=== PATIENT | male | born 1990 | race Caucasian/White ===

== ENCOUNTER 2019-05-06 18:23 | Inpatient (IN) | payer OTHER ==
[2019-05-06 19:54] VITALS: BMI 24.4
--- NOTE | 2019-05-06 21:03 | HP ---
CIWA Score Nausea/Vomitin Muscle Tremors: 1-None Visible, but [place] Anxiety: 2 Agitation: 2 Paroxysmal Sweats: 1-Minimal Palms Moist Orientation: 0-Oriented Tacttile Disturbances: 0-None Auditory Disturbances: 2-Mild Harshness/Frighten Visual Disturbances: 2-Mild Sensitivity Headache: 4-Moderately Severe CIWA-Ar Total Score: 16 - Admission Criteria OASAS Guidelines: Admission for Medically Managed Detox: Requires at least one of the followin. CIWA greater than 12 2. Seizures within the past 24 hours 3. Delirium tremens within the past 24 hours 4. Hallucinations within the past 24 hours 5. Acute intervention needed for co occurring medical disorder 6. Acute intervention needed for co occurring psychiatric disorder 7. Severe withdrawal that cannot be handled at a lower level of care (continued vomiting, continued diarrhea, abnormal vital signs) requiring intravenous medication and/or fluids 8. Admission ROS [facility] Allergies/Adverse Reactions: Allergies Allergy/AdvReac Type Severity Reaction Status Date / Time No Known Allergies Allergy Verified 05/06/19 19:49 History of Present Illness: Search Terms: robert hernandez, 1990 Search Date: 05/06/2019 08:56:15 PM The Drug Utilization Report below displays all of the controlled substance prescriptions, if any, that your patient has filled in the last twelve months. The information displayed on this report is compiled from pharmacy submissions to the Department, and accurately reflects the information as submitted by the pharmacies. This report was requested by: Shantell Patel | Reference #: [id number] There are no results for the search terms that you entered. pt here requesting detox from etoh use , reports first age of use 16 , current daily use " every day once in a while " 3-4 cans beer x 24 oz , reports symptoms if not drinking " I don't feel normal " , latest use yesterday , went to [facility] 2/ [place] , pt was referred to this facility . cocaine : 2 bags /day via inhalation x 5 years tobacco : 2-3 cigarettes PMHX : SAD PSHX : denies SHx : lives alone , no children Exam Limitations: Clinical Condition - Ebola screening Have you traveled outside of the country in the last 21 days: No (N) Have you had contact with anyone from an Ebola affected area: No Do you have a fever: No - Review of Systems Constitutional: No Symptoms Reported EENT: reports: Other (glasses - myopia , denies hearing loss, denies dysphagia ) Respiratory: reports: No Symptoms reported Cardiac: reports: No Symptoms Reported GI: reports: Constipated, Nausea : reports: No Symptoms Reported Musculoskeletal: reports: No Symptoms Reported Integumentary: reports: Dryness, Rash (raulito l ankles- chronic) Neuro: reports: See HPI, Headache Endocrine: reports: No Symptoms Reported Hematology: reports: Anemia Psychiatric: reports: Orientated x3, Agitated, Anxious, Depressed Patient History - Smoking Cessation Smoking history: Current every day smoker Have you smoked in the past 12 months: Yes Hx Chewing Tobacco Use: No Initiated information on smoking cessation: Yes 'Breaking Loose' booklet given: 05/06/19 - Substances abused Alcohol Substance route: Oral Frequency: Daily Amount used: liquor-1 pint, beer- 1 six pack Age of first use: 16 Date of last use: 05/05/19 Admission Physical Exam BHS - Vital Signs Vital Signs: Vital Signs - 24 hr 05/06/19 19:49 Temperature 97.0 F L Pulse Rate 88 Respiratory 18 Rate Blood Pressure 98/67 - Physical General Appearance: Yes: Mild Distress, Anxious HEENTM: Yes: EOMI, Hearing grossly Normal, Normocephalic, Normal Voice Respiratory: Yes: Chest Non-Tender, Lungs Clear, Normal Breath Sounds, No Respiratory Distress, No Accessory Muscle Use Neck: Yes: No masses,lesions,Nodules, Trachea in good position Cardiology: Yes: Regular Rhythm, Regular Rate, S1, S2 Abdominal: Yes: Non Tender, Soft Musculoskeletal: Yes: Gait Steady Extremities: Yes: Normal Range of Motion, Non-Tender Neurological: Yes: Alert, Motor Strength 5/5, Depressed Affect Integumentary: Yes: Warm - Diagnostic (1) Alcohol abuse Current Visit: Yes Status: Chronic (2) Cocaine abuse Current Visit: Yes Status: Chronic (3) Nicotine dependence Current Visit: Yes Status: Chronic Qualifiers: Nicotine product type: cigarettes Breathalyzer - Breathalyzer Breathalyzer: 0 Inpatient Rehab Admission - Rehab Decision to Admit Inpatient rehab admission?: No
[2019-05-06] MEDS ORDERED: BISMUTH SUBSALICYLATE 524 MG/30 ML UD PO PRN (21:09)
[2019-05-06] MEDS ORDERED: MAGNESIUM HYDROX 2400MG/30ML ORAL SUSPENSION 30 ML CUP PO PRN (21:09)
[2019-05-06] MEDS ORDERED: hydrOXYzine PAMOATE 25 MG CAPSULE (FP) PO PRN (21:09)
[2019-05-06] MEDS ORDERED: MAG HYDROX/AL HYDROX/SIMETH 30 ML UNIT-DOSE CUP PO PRN (21:09)
[2019-05-06] MEDS ORDERED: ACETAMINOPHEN 325 MG TABLET (FP) PO PRN (21:09)
[2019-05-06] MEDS ORDERED: MENTHOL/PHENOL 1 EACH UD MM PRN (21:09)
[2019-05-06] MEDS ORDERED: MAGNESIUM CITRATE 300 ML BOTTLE PO PRN (21:09)
[2019-05-06] MEDS ORDERED: IBUPROFEN 400 MG TABLET (FP) PO PRN (21:09)
[2019-05-06] MEDS ORDERED: diazePAM 5 MG TABLET PO PRN (21:11)
[2019-05-06] MEDS: diazePAM 5 MG TABLET PO SCH (22:38)
[2019-05-06] MEDS: MELATONIN 5 MG TABLETS PO PRN (22:38)
[2019-05-06] MEDS: THIAMINE HCL 100 MG TABLET (FP) PO SCH (22:38)
[2019-05-07] MEDS: diazePAM 5 MG TABLET PO SCH ×3 (06:59→22:34)
[2019-05-07] MEDS: PRENATAL VITAMINS W/ FOLIC ACID TABLET (FP) PO SCH (10:06)
[2019-05-07] MEDS: NICOTINE 14 MG/24 HOURS TOPICAL PATCH TD SCH (10:08)
[2019-05-07 10:19] LABS: HEMOGLOBIN 12.6 GM/dL (11.7-16.9); MCH 28.5 pg (25.7-33.7); MCHC 32.2 g/dl (32.0-35.9); MEAN CELL VOLUME 88.4 fl (80-96); MEAN PLT VOLUME 8.7 fl (7.5-11.1); PLATELET COUNT 239 K/MM3 (134-434); RBC 4.41 M/mm3 (4.00-5.60); WHITE BLOOD COUNT 6.3 K/mm3 (4.0-10.0)
[2019-05-07 10:28] LABS: ALBUMIN 3.3 g/dl (3.4-5.0); BILIRUBIN,TOTAL 0.3 mg/dL (0.2-1); BLOOD UREA NITROGEN 14.8 mg/dL (7-18); CALCIUM 9.1 mg/dL (8.5-10.1); CREATININE 1.1 mg/dL (0.55-1.3); POTASSIUM 4.3 mmol/L (3.5-5.1); TOT PROT 6.5 g/dl (6.4-8.2)
--- NOTE | 2019-05-07 13:41 | PN ---
[facility] CIWA - CIWA Score Nausea/Vomitin-Mild Nausea/No Vomiting Muscle Tremors: 3 Anxiety: 4-Mod. Anxious/Guarded Agitation: 2 Paroxysmal Sweats: 2 Orientation: 0-Oriented Tacttile Disturbances: 0-None Auditory Disturbances: 0-None Visual Disturbances: 0-None Headache: 0-None Present CIWA-Ar Total Score: 12 S Progress Note (SOAP) Subjective: 28 years old male admitted on 05/06/19 for alcohol withdrawal sx management treated with valium detox regimen feeling tired resting on bed trouble sleeping Objective: 05/07/19 13:40 Vital Signs Temperature 97.3 F L 05/07/19 13:19 Pulse Rate 88 05/07/19 13:19 Respiratory Rate 20 05/07/19 13:19 Blood Pressure 102/69 05/07/19 13:19 O2 Sat by Pulse Oximetry (%) Laboratory Last Values WBC 6.3 K/mm3 (4.0-10.0) 05/07/19 08:00 RBC 4.41 M/mm3 (4.00-5.60) 05/07/19 08:00 Hgb 12.6 GM/dL (11.7-16.9) 05/07/19 08:00 Hct 39.0 % (35.4-49) 05/07/19 08:00 MCV 88.4 fl (80-96) 05/07/19 08:00 MCH 28.5 pg (25.7-33.7) 05/07/19 08:00 MCHC 32.2 g/dl (32.0-35.9) 05/07/19 08:00 RDW 13.0 % (11.9-15.9) 05/07/19 08:00 Plt Count 239 K/MM3 (134-434) 05/07/19 08:00 MPV 8.7 fl (7.5-11.1) 05/07/19 08:00 Sodium 142 mmol/L (136-145) 05/07/19 08:00 Potassium 4.3 mmol/L (3.5-5.1) 05/07/19 08:00 Chloride 108 mmol/L (98-107) H 05/07/19 08:00 Carbon Dioxide 28 mmol/L (21-32) 05/07/19 08:00 Anion Gap 6 MMOL/L (8-16) L 05/07/19 08:00 BUN 14.8 mg/dL (7-18) 05/07/19 08:00 Creatinine 1.1 mg/dL (0.55-1.3) 05/07/19 08:00 Est GFR (CKD-EPI)AfAm 106.06 05/07/19 08:00 Est GFR (CKD-EPI)NonAf 91.51 05/07/19 08:00 Random Glucose 79 mg/dL (74-106) 05/07/19 08:00 Calcium 9.1 mg/dL (8.5-10.1) 05/07/19 08:00 Total Bilirubin 0.3 mg/dL (0.2-1) 05/07/19 08:00 AST 10 U/L (15-37) L 05/07/19 08:00 ALT 13 U/L (13-61) 05/07/19 08:00 Alkaline Phosphatase 66 U/L (45-117) 05/07/19 08:00 Total Protein 6.5 g/dl (6.4-8.2) 05/07/19 08:00 Albumin 3.3 g/dl (3.4-5.0) L 05/07/19 08:00 lab noted Assessment: 05/07/19 13:40 alcohol withdrawal sx Plan: continue valium detox regimen
--- NOTE | 2019-05-07 15:03 | CONSULT ---
[facility] Psychiatric Consult - Data Date of interview: 05/07/19 Admission source: [facility] Identifying data: First admission to [facility] for this 28 y/o male self-referred for detoxification (CHINEDU issues : alcohol, heroin, cocaine, nicotine). Interviewed at [address] [place] [address]. Patient is single, no children, homeless, unemployed and supported by SSI benefits. Substance Abuse History: Discussed with patient. Details in current [facility] report as follows : Smoking history: Current every day smoker. Have you smoked in the past 12 months: Yes. Hx Chewing Tobacco Use: No. Initiated information on smoking cessation: Yes. 'Breaking Loose' booklet given: 05/06/19. - Substances abused. Alcohol. Substance route: Oral. Frequency: Daily. Amount used: liquor-1 pint, beer- 1 six pack. Age of first use: 16. Date of last use: 05/05/19 Medical History: Patient endorses good general health. Psychiatric History: Patient reports a history of 5-6 psychiatric hospitalizations since his first psychiatric meltdown at age 18. He is known to [facility] and [facility] (discharged on 05/05/19) . Diagnosed with Schizophrenia. Patient has been prescribed risperdal 2 mg/hs. Mr Hunt denies history of suicide attempts. Physical/Sexual Abuse/Trauma History: Patient denies history of abuse. Additional Comment: No toxicology for review. Mental Status Exam - Mental Status Exam Alert and Oriented to: Time, Place, Person Cognitive Function: Good Patient Appearance: Well Groomed Mood: Withdrawn Affect: Flat Patient Behavior: Fatigued, Cooperative Speech Pattern: Clear, Delayed Voice Loudness: Normal Thought Process: Goal Oriented Thought Disorder: Bizarre Hallucinations: Denies Suicidal Ideation: Denies Homicidal Ideation: Denies Insight/Judgement: Poor Sleep: Well Appetite: Good Muscle strength/Tone: Normal Gait/Station: Normal Psychiatric Findings - Problem List ([place] 1, 2,3) (1) Schizophrenia Current Visit: Yes Status: Chronic (2) Alcohol use disorder Current Visit: Yes Status: Chronic (3) Cocaine use disorder Current Visit: Yes Status: Chronic (4) Opioid use disorder Current Visit: Yes Status: Chronic (5) Nicotine dependence Current Visit: Yes Status: Chronic Qualifiers: Nicotine product type: cigarettes (6) Substance induced mood disorder Current Visit: Yes Status: Chronic - Initial Treatment Plan Initial Treatment Plan: Psychoeducation. Sleep hygiene. Detoxification. AA/NA meetings. MAT services : revisited with patient. Risperdal 2 mg po hs. Side effects/benefits discussed in this session. Patient is made aware of potential for EPS (akathisia, dystonias, tardive dyskinesia, akinesia), neuroleptic syndrome, endocrine issues (galactorrhea, gynecomastia, sexual impotence) and cardiovascular adverse events. Mr Hunt is in agreement with this plan of care. Gave verbal consent to . Observation.
[2019-05-07] MEDS: risperiDONE 2 MG TABLET PO SCH (22:33)
[2019-05-07] MEDS: THIAMINE HCL 100 MG TABLET (FP) PO SCH (22:33)
[2019-05-07] MEDS: MELATONIN 5 MG TABLETS PO PRN (22:33)
[2019-05-08] MEDS: diazePAM 5 MG TABLET PO SCH ×2 (05:47→17:50)
--- NOTE | 2019-05-08 09:39 | PN ---
[facility] CIWA - CIWA Score Nausea/Vomitin-Mild Nausea/No Vomiting Muscle Tremors: 2 Anxiety: 2 Agitation: 2 Paroxysmal Sweats: No Perspiration Orientation: 0-Oriented Tacttile Disturbances: 0-None Auditory Disturbances: 0-None Visual Disturbances: 0-None Headache: 0-None Present CIWA-Ar Total Score: 7 S Progress Note (SOAP) Subjective: 28 years old male admitted on 05/06/19 for alcohol withdrawal sx management treated with valium detox regimen patient tolerated well feeling better today less tremor mild anxiety ate breakfast discuss aftercare with staff Objective: 05/08/19 09:38 Vital Signs Temperature 97.2 F L 05/08/19 09:14 Pulse Rate 61 05/08/19 09:14 Respiratory Rate 18 05/08/19 09:14 Blood Pressure 86/57 L 05/08/19 09:14 O2 Sat by Pulse Oximetry (%) Laboratory Last Values WBC 6.3 K/mm3 (4.0-10.0) 05/07/19 08:00 RBC 4.41 M/mm3 (4.00-5.60) 05/07/19 08:00 Hgb 12.6 GM/dL (11.7-16.9) 05/07/19 08:00 Hct 39.0 % (35.4-49) 05/07/19 08:00 MCV 88.4 fl (80-96) 05/07/19 08:00 MCH 28.5 pg (25.7-33.7) 05/07/19 08:00 MCHC 32.2 g/dl (32.0-35.9) 05/07/19 08:00 RDW 13.0 % (11.9-15.9) 05/07/19 08:00 Plt Count 239 K/MM3 (134-434) 05/07/19 08:00 MPV 8.7 fl (7.5-11.1) 05/07/19 08:00 Sodium 142 mmol/L (136-145) 05/07/19 08:00 Potassium 4.3 mmol/L (3.5-5.1) 05/07/19 08:00 Chloride 108 mmol/L (98-107) H 05/07/19 08:00 Carbon Dioxide 28 mmol/L (21-32) 05/07/19 08:00 Anion Gap 6 MMOL/L (8-16) L 05/07/19 08:00 BUN 14.8 mg/dL (7-18) 05/07/19 08:00 Creatinine 1.1 mg/dL (0.55-1.3) 05/07/19 08:00 Est GFR (CKD-EPI)AfAm 106.06 05/07/19 08:00 Est GFR (CKD-EPI)NonAf 91.51 05/07/19 08:00 Random Glucose 79 mg/dL (74-106) 05/07/19 08:00 Calcium 9.1 mg/dL (8.5-10.1) 05/07/19 08:00 Total Bilirubin 0.3 mg/dL (0.2-1) 05/07/19 08:00 AST 10 U/L (15-37) L 05/07/19 08:00 ALT 13 U/L (13-61) 05/07/19 08:00 Alkaline Phosphatase 66 U/L (45-117) 05/07/19 08:00 Total Protein 6.5 g/dl (6.4-8.2) 05/07/19 08:00 Albumin 3.3 g/dl (3.4-5.0) L 05/07/19 08:00 RPR Titer Nonreactive (NONREACTIVE) 05/07/19 08:00 lab noted Assessment: 05/08/19 09:39 alcohol withdrawal sx Plan: continue valium detox regimen
[2019-05-08] MEDS: NICOTINE 14 MG/24 HOURS TOPICAL PATCH TD SCH (10:03)
[2019-05-08] MEDS: PRENATAL VITAMINS W/ FOLIC ACID TABLET (FP) PO SCH (10:04)
[2019-05-08] MEDS: risperiDONE 2 MG TABLET PO SCH (21:53)
[2019-05-08] MEDS: THIAMINE HCL 100 MG TABLET (FP) PO SCH (21:53)
[2019-05-08] MEDS: MELATONIN 5 MG TABLETS PO PRN (21:54)
[2019-05-09] MEDS ORDERED: diazePAM 5 MG TABLET PO ONE (06:00)
[2019-05-09] MEDS: NICOTINE 14 MG/24 HOURS TOPICAL PATCH TD SCH (11:06)
[2019-05-09] MEDS: PRENATAL VITAMINS W/ FOLIC ACID TABLET (FP) PO SCH (11:07)
--- NOTE | 2019-05-09 11:58 | PN ---
[facility] CIWA - CIWA Score Nausea/Vomitin-No Nausea/No Vomiting Muscle Tremors: 1-None Visible, but [place] Anxiety: 1-Mildly Anxious Agitation: 0-Normal Activity Paroxysmal Sweats: No Perspiration Orientation: 0-Oriented Tacttile Disturbances: 0-None Auditory Disturbances: 0-None Visual Disturbances: 0-None Headache: 0-None Present CIWA-Ar Total Score: 2 S Progress Note (SOAP) Subjective: 28 years old male admitted on 05/06/19 for alcohol withdrawal sx management treated with valium detox regimen completed detox regimen found +PPD "Like before" patient had history of positive ppd and "they did not do anything " patient does not remember +PPD treatment patient does not remember latest chest x ray patient does not remember anything regarding +PPD however every happy to stay for chest x ray available tomorrow Objective: 05/09/19 12:01 Vital Signs Temperature 96.3 F L 05/09/19 09:13 Pulse Rate 67 05/09/19 09:13 Respiratory Rate 18 05/09/19 09:13 Blood Pressure 113/65 05/09/19 09:13 O2 Sat by Pulse Oximetry (%) Laboratory Last Values WBC 6.3 K/mm3 (4.0-10.0) 05/07/19 08:00 RBC 4.41 M/mm3 (4.00-5.60) 05/07/19 08:00 Hgb 12.6 GM/dL (11.7-16.9) 05/07/19 08:00 Hct 39.0 % (35.4-49) 05/07/19 08:00 MCV 88.4 fl (80-96) 05/07/19 08:00 MCH 28.5 pg (25.7-33.7) 05/07/19 08:00 MCHC 32.2 g/dl (32.0-35.9) 05/07/19 08:00 RDW 13.0 % (11.9-15.9) 05/07/19 08:00 Plt Count 239 K/MM3 (134-434) 05/07/19 08:00 MPV 8.7 fl (7.5-11.1) 05/07/19 08:00 Sodium 142 mmol/L (136-145) 05/07/19 08:00 Potassium 4.3 mmol/L (3.5-5.1) 05/07/19 08:00 Chloride 108 mmol/L (98-107) H 05/07/19 08:00 Carbon Dioxide 28 mmol/L (21-32) 05/07/19 08:00 Anion Gap 6 MMOL/L (8-16) L 05/07/19 08:00 BUN 14.8 mg/dL (7-18) 05/07/19 08:00 Creatinine 1.1 mg/dL (0.55-1.3) 05/07/19 08:00 Est GFR (CKD-EPI)AfAm 106.06 05/07/19 08:00 Est GFR (CKD-EPI)NonAf 91.51 05/07/19 08:00 Random Glucose 79 mg/dL (74-106) 05/07/19 08:00 Calcium 9.1 mg/dL (8.5-10.1) 05/07/19 08:00 Total Bilirubin 0.3 mg/dL (0.2-1) 05/07/19 08:00 AST 10 U/L (15-37) L 05/07/19 08:00 ALT 13 U/L (13-61) 05/07/19 08:00 Alkaline Phosphatase 66 U/L (45-117) 05/07/19 08:00 Total Protein 6.5 g/dl (6.4-8.2) 05/07/19 08:00 Albumin 3.3 g/dl (3.4-5.0) L 05/07/19 08:00 RPR Titer Nonreactive (NONREACTIVE) 05/07/19 08:00 lab noted Assessment: 05/09/19 12:01 alcohol withdrawal Plan: valium regimen
[2019-05-09] MEDS: risperiDONE 2 MG TABLET PO SCH (22:01)
[2019-05-09] MEDS: THIAMINE HCL 100 MG TABLET (FP) PO SCH (22:01)
[2019-05-10] MEDS: PRENATAL VITAMINS W/ FOLIC ACID TABLET (FP) PO SCH (10:11)
[2019-05-10] MEDS: NICOTINE 14 MG/24 HOURS TOPICAL PATCH TD SCH (10:11)
--- NOTE | 2019-05-10 11:22 | PN ---
[facility] CIWA - CIWA Score Nausea/Vomitin-No Nausea/No Vomiting Muscle Tremors: 1-None Visible, but [place] Anxiety: 1-Mildly Anxious Agitation: 1-Slight > Activity Paroxysmal Sweats: No Perspiration Orientation: 0-Oriented Tacttile Disturbances: 0-None Auditory Disturbances: 0-None Visual Disturbances: 0-None Headache: 1-Very Mild CIWA-Ar Total Score: 4 BHS Progress Note (SOAP) Subjective: alert,no complaint Objective: 05/10/19 11:21 Vital Signs Temperature 96.2 F L 05/10/19 09:16 Pulse Rate 65 05/10/19 09:16 Respiratory Rate 16 05/10/19 09:16 Blood Pressure 106/70 05/10/19 09:16 O2 Sat by Pulse Oximetry (%) Assessment: 05/10/19 11:21 detox complete,no withdrawal symptom [facility]
--- NOTE | 2019-05-10 11:25 | DS ---
[facility] Detox Discharge Summary Admission Date: 05/06/19 Discharge Date: 05/10/19 - History Present History: Alcohol Dependence, Cocaine Dependence Additional Comments: follow up with rehab in [facility] as arrangement Pertinent Past History: nicotine dependence - Physical Exam Results Vital Signs: Vital Signs Temperature 96.2 F L 05/10/19 09:16 Pulse Rate 65 05/10/19 09:16 Respiratory Rate 16 05/10/19 09:16 Blood Pressure 106/70 05/10/19 09:16 O2 Sat by Pulse Oximetry (%) Pertinent Admission Physical Exam Findings: withdrawal signs and symptom Vital Signs Temperature 96.2 F L 05/10/19 09:16 Pulse Rate 65 05/10/19 09:16 Respiratory Rate 16 05/10/19 09:16 Blood Pressure 106/70 05/10/19 09:16 O2 Sat by Pulse Oximetry (%) Laboratory Last Values WBC 6.3 K/mm3 (4.0-10.0) 05/07/19 08:00 RBC 4.41 M/mm3 (4.00-5.60) 05/07/19 08:00 Hgb 12.6 GM/dL (11.7-16.9) 05/07/19 08:00 Hct 39.0 % (35.4-49) 05/07/19 08:00 MCV 88.4 fl (80-96) 05/07/19 08:00 MCH 28.5 pg (25.7-33.7) 05/07/19 08:00 MCHC 32.2 g/dl (32.0-35.9) 05/07/19 08:00 RDW 13.0 % (11.9-15.9) 05/07/19 08:00 Plt Count 239 K/MM3 (134-434) 05/07/19 08:00 MPV 8.7 fl (7.5-11.1) 05/07/19 08:00 Sodium 142 mmol/L (136-145) 05/07/19 08:00 Potassium 4.3 mmol/L (3.5-5.1) 05/07/19 08:00 Chloride 108 mmol/L (98-107) H 05/07/19 08:00 Carbon Dioxide 28 mmol/L (21-32) 05/07/19 08:00 Anion Gap 6 MMOL/L (8-16) L 05/07/19 08:00 BUN 14.8 mg/dL (7-18) 05/07/19 08:00 Creatinine 1.1 mg/dL (0.55-1.3) 05/07/19 08:00 Est GFR (CKD-EPI)AfAm 106.06 05/07/19 08:00 Est GFR (CKD-EPI)NonAf 91.51 05/07/19 08:00 Random Glucose 79 mg/dL (74-106) 05/07/19 08:00 Calcium 9.1 mg/dL (8.5-10.1) 05/07/19 08:00 Total Bilirubin 0.3 mg/dL (0.2-1) 05/07/19 08:00 AST 10 U/L (15-37) L 05/07/19 08:00 ALT 13 U/L (13-61) 05/07/19 08:00 Alkaline Phosphatase 66 U/L (45-117) 05/07/19 08:00 Total Protein 6.5 g/dl (6.4-8.2) 05/07/19 08:00 Albumin 3.3 g/dl (3.4-5.0) L 05/07/19 08:00 RPR Titer Nonreactive (NONREACTIVE) 05/07/19 08:00 - Treatment Hospital Course: Detox Protocol Followed, Detoxed Safely, Responded well, Discharged Condition Good, Rehab Referral Accepted Patient has Accepted a Rehab Referral to: [facility] - Medication Discharge Medications: Ambulatory Orders Risperidone [Risperdal -] 2 mg PO HS 05/06/19 - Diagnosis (1) Alcohol use disorder Current Visit: Yes Status: Chronic (2) Cocaine use disorder Current Visit: Yes Status: Chronic (3) Schizophrenia Current Visit: Yes Status: Chronic - AMA Did Patient Leave Against Medical Advice: No
[2019-05-10 14:40] VITALS: BP 116/71; PULSE 96; TEMP 97.9
== END 2019-05-10 18:10 | disposition other institution (70) | DRG 897 ==
LOC: YASAS 18:23 → Y3N 21:46
PROVIDERS: ADMIT Neuromusculoskeletal Medicine & OMM; ATTEND Neuromusculoskeletal Medicine & OMM
PROC: HZ2ZZZZ Detoxification Services for Substance Abuse Treatment (ICD-10-PCS; principal; 2019-05-06)
DX: F10.230 Alcohol dependence with withdrawal, uncomplicated (principal); F14.20 Cocaine dependence, uncomplicated; F11.20 Opioid dependence, uncomplicated; F17.210 Nicotine dependence, cigarettes, uncomplicated; F20.9 Schizophrenia, unspecified; F19.24 Other psychoactive substance dependence with psychoactive substance-induced mood disorder; R76.11 Nonspecific reaction to tuberculin skin test without active tuberculosis; Z59.0 Homelessness
CPT/HCPCS: 36415; 71046-TC-FY; 80053; 85027; 86593

== ENCOUNTER 2019-05-10 18:03 | Inpatient (IN) | payer OTHER ==
[2019-05-10] MEDS ORDERED: IBUPROFEN 400 MG TABLET (FP) PO PRN (19:39)
[2019-05-10] MEDS ORDERED: LOPERAMIDE HCL 2 MG CAPSULE PO PRN (19:39)
[2019-05-10] MEDS ORDERED: guaiFENesin 200 MG/10 ML 10 ML UNIT-DOSE CUPS PO PRN (19:39)
[2019-05-10] MEDS ORDERED: hydrOXYzine PAMOATE 25 MG CAPSULE (FP) PO PRN (19:39)
[2019-05-10] MEDS ORDERED: P-EPHED 60MG/TRIPROLIDI 2.5MG TABLET PO PRN (19:39)
[2019-05-10] MEDS ORDERED: MENTHOL/PHENOL 1 EACH UD MM PRN (19:39)
[2019-05-10] MEDS ORDERED: MAG HYDROX/AL HYDROX/SIMETH 30 ML UNIT-DOSE CUP PO PRN (19:39)
[2019-05-10] MEDS ORDERED: ACETAMINOPHEN 325 MG TABLET (FP) PO PRN (19:39)
[2019-05-10] MEDS ORDERED: MAGNESIUM HYDROX 2400MG/30ML ORAL SUSPENSION 30 ML CUP PO PRN (19:39)
[2019-05-10] MEDS ORDERED: MAGNESIUM CITRATE 300 ML BOTTLE PO PRN (19:39)
[2019-05-10] MEDS: THIAMINE HCL 100 MG TABLET (FP) PO SCH (21:51)
[2019-05-10] MEDS: MELATONIN 5 MG TABLETS PO PRN (21:51)
[2019-05-11] MEDS: PRENATAL VITAMINS W/ FOLIC ACID TABLET (FP) PO SCH (10:47)
[2019-05-11] MEDS: MELATONIN 5 MG TABLETS PO PRN (21:39)
[2019-05-11] MEDS: THIAMINE HCL 100 MG TABLET (FP) PO SCH (21:39)
[2019-05-12 07:11] VITALS: BP 118/67; PULSE 66; TEMP 97.2
[2019-05-12] MEDS: PRENATAL VITAMINS W/ FOLIC ACID TABLET (FP) PO SCH (10:41)
[2019-05-12] MEDS: MELATONIN 5 MG TABLETS PO PRN (21:33)
[2019-05-12] MEDS: THIAMINE HCL 100 MG TABLET (FP) PO SCH (21:33)
--- NOTE | 2019-05-13 11:36 | PN ---
S Progress Note Note: Pt was admitted to [address] [place] [address] late Monday night to early hours of Monday. pt signed out AMA early this morning at 6:15 A.M per nursing staff report.
--- NOTE | 2019-05-13 11:40 | DS ---
[facility] Rehab Discharge Summary - [facility] Rehab Discharge Summary Admission Date: 05/10/19 Discharge Date: 05/13/19 - History Present History: Alcohol dependence, Cocaine dependence Additional Comments: Pt is a 28 y/o male with a CHINEDU admitted to rehab from [address] [place] [address] after detox treatment.Pt was admitted to [address] [address] late Monday night to early hours of Monday05/11/10. Pt signed out AMA early this morning at 6:15 A.M per nursing staff report. Pertinent Past History: Psych hx schizophrenia - Discharge Physical Exam Vital Signs: Vital Signs Temperature 97.2 F L 05/12/19 07:10 Pulse Rate 66 05/12/19 07:10 Respiratory Rate 18 05/13/19 03:30 Blood Pressure 118/67 05/12/19 07:10 O2 Sat by Pulse Oximetry (%) Pertinent Admission Physical Exam Findings: cronic rash,bilateral ankle per detox admission H/P - Treatment Discharge Condition: Discharge condition good (per nursing d/c note) Hospital Course: pt declined to continue with treatment - Medication Discharge Medications: Ambulatory Orders Risperidone [Risperdal -] 2 mg PO HS 05/06/19 - Medication-Assisted Treatment (MAT) Medication-Assisted Treatment (MAT): No - Discharge Instructions Diet, activity, other medical instructions: Diet: Activity: Other medical instructions: - Diagnosis (1) Alcohol use disorder Status: Chronic (2) Cocaine use disorder Status: Chronic (3) Nicotine dependence Status: Chronic Qualifiers: Nicotine product type: cigarettes - Follow-up Referral Minutes to complete discharge: 10 - AMA Did Patient Leave Against Medical Advice: Yes Additional Comments: 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 Pt signed out before able to encounter pt for rehab treatment.
== END 2019-05-13 06:15 | disposition left against medical advice (07) | DRG 894 ==
LOC: YASAS 18:03 → Y5N 18:05
PROVIDERS: ADMIT Neuromusculoskeletal Medicine & OMM; ATTEND Neuromusculoskeletal Medicine & OMM
PROC: HZ42ZZZ Group Counseling for Substance Abuse Treatment, Cognitive-Behavioral (ICD-10-PCS; principal; 2019-05-10)
DX: F10.20 Alcohol dependence, uncomplicated (principal); F14.20 Cocaine dependence, uncomplicated; F17.210 Nicotine dependence, cigarettes, uncomplicated; R21 Rash and other nonspecific skin eruption